=== PATIENT | male | born 2000 | race Caucasian/White ===

== ENCOUNTER 2021-06-09 21:29 | Emergency (ER) ==
[~2021-06-09] VITALS: Ht 172.7 cm; Wt 77.3 kg
--- NOTE | 2021-06-10 00:07 | REPVR ---
PROCEDURE INFORMATION: Exam: XR Left Wrist Exam date and time: 06/09/2021 9:59 PM Age: 20 years old Clinical indication: Other: Fell TECHNIQUE: Imaging protocol: XR Left wrist. Views: 3 or more views. COMPARISON: No relevant prior studies available. FINDINGS: Distal radioulnar congruency is maintained. Radiocarpal joint spacing and alignment is preserved. Intercarpal spacing and alignment of the carpal arcs is preserved. No acute fracture seen. IMPRESSION: No radiographic evidence of an acute osseous injury or articular malalignment is seen at the left wrist. Electronically signed by: Raul Montero On 06/10/2021 00:07:25 AM
--- NOTE | 2021-06-10 00:13 | REPVR ---
PROCEDURE INFORMATION: Exam: XR Left Shoulder Exam date and time: 06/09/2021 9:59 PM Age: 20 years old Clinical indication: Other: Fell TECHNIQUE: Imaging protocol: XR Left shoulder. Views: 2 or more views. COMPARISON: No relevant prior studies available. FINDINGS: Glenohumeral alignment is anatomic. The humeral head is concentric, without evidence of a Hill-Sachs deformity. No evidence of calcific tendinitis. No bony Bankart fracture seen. Acromioclavicular alignment and spacing is preserved. There is linear density overlying the midclavicle of uncertain significance. This could be overlying artifact or related to a healing nondisplaced subacute injury. Clinical correlation is advised. IMPRESSION: No radiographic evidence of an acute osseous injury. Other findings discussed above. Electronically signed by: Raul Montero On 06/10/2021 00:12:47 AM
== END 2021-06-10 01:59 | disposition left against medical advice (07) ==
LOC: M ED 21:29
DX: Z53.29 Procedure and treatment not carried out because of patient's decision for other reasons (principal)

== ENCOUNTER 2021-06-29 18:59 | Inpatient (IN) | payer OTHER ==
[~2021-06-29] VITALS: Ht 172.7 cm; Wt 77.5 kg
[2021-06-29 21:16] LABS: HEMATOCRIT 47.2 % (42.0-52.0); HEMOGLOBIN 16.2 g/dl (13.5-17.5); MEAN CORPUSCULAR HEMOGLOBIN 30.2 pg (27.0-33.0); MEAN CORPUSCULAR HGB CONC 34.3 g/dl (32.0-36.5); MEAN CORPUSCULAR VOLUME 88.1 fl (80.0-96.0); PLATELET COUNT, AUTOMATED 298 10^3/uL (150-450); RED BLOOD COUNT 5.36 10^6/uL (4.30-6.10); WHITE BLOOD COUNT 7.6 10^3/uL (4.0-10.0)
[2021-06-29 21:42] LABS: AMPHETAMINES LEVEL URINE NEGATIVE (NEGATIVE); BARBITURATES URINE NEGATIVE (NEGATIVE); BENZODIAZEPINES URINE NEGATIVE (NEGATIVE); CANNABINOIDS URINE NEGATIVE (NEGATIVE); COCAINE METABOLITE URINE NEGATIVE (NEGATIVE); METHADONE URINE NEGATIVE (NEGATIVE); OPIATES URINE NEGATIVE (NEGATIVE); PHENCYCLIDINE URINE NEGATIVE (NEGATIVE)
[2021-06-29 21:47] LABS: ACETAMINOPHEN LEVEL < 2.0 UG/ML (10.0-30.0); ALBUMIN 4.1 GM/DL (3.2-5.2); ALT/SGPT 26 U/L (12-78); BILIRUBIN,DIRECT 0.1 MG/DL (0.0-0.2); BILIRUBIN,TOTAL 0.4 MG/DL (0.2-1.0); BLOOD UREA NITROGEN 14 MG/DL (7-18); CALCIUM LEVEL 8.9 MG/DL (8.5-10.1); CARBON DIOXIDE LEVEL 30 MEQ/L (21-32); CHLORIDE LEVEL 109 MEQ/L (98-107); CREATININE FOR GFR 1.31 MG/DL (0.70-1.30); ETHYL ALCOHOL (ETHANOL) < 0.003 % (0.000-0.010); GLOMERULAR FILTRATION RATE > 60.0 (>60); GLUCOSE, FASTING 84 MG/DL (70-100); SALICYLATE LEVEL < 1.7 MG/DL (5.0-30.0); SODIUM LEVEL 143 MEQ/L (136-145); TOTAL PROTEIN 7.1 GM/DL (6.4-8.2)
[2021-06-29 21:53] LABS: RSV AMPLIFICATION NEGATIVE (NEGATIVE)
[2021-06-29] MEDS ORDERED: MOM 30ML SUSPENSION UDC PO PRN (22:25)
[2021-06-29] MEDS ORDERED: MAALOX 30 ML SUSP *UDC PO PRN (22:25)
[2021-06-29] MEDS ORDERED: ACETAMINOPHEN TAB 650MG DOSE (2X325MG) PO PRN (22:25)
[2021-06-29] MEDS ORDERED: traZODone 50 MG TAB PO PRN (22:25)
--- OUTSIDE RECORDS SUMMARY | 2021-06-29 22:49 | CCD ---
Author Author [facility] Address Unknown Phone Unavailable Support Name Relationship Address Phone [facility] Next Of Kin [address] [place] [address] Unavailable Re-disclosure Warning The records that you are about to access may contain information from federally-assisted alcohol or drug abuse programs. If such information is present, then the following federally mandated warning applies: This information has been disclosed to you from records protected by federal confidentiality rules (42 CFR part 2). The federal rules prohibit you from making any further disclosure of this information unless further disclosure is expressly permitted by the written consent of the person to whom it pertains or as otherwise permitted by 42 CFR part 2. A general authorization for the release of medical or other information is NOT sufficient for this purpose. The Federal rules restrict any use of the information to criminally investigate or prosecute any alcohol or drug abuse patient.The records that you are about to access may contain highly sensitive health information, the redisclosure of which is protected by Article 27-F of the [facility] Public Health law. If you continue you may have access to information: Regarding HIV / AIDS; Provided by facilities licensed or operated by the [facility] Office of Mental Health; or Provided by the [facility] Office for People With Developmental Disabilities. If such information is present, then the following [facility] mandated warning applies: This information has been disclosed to you from confidential records which are protected by state law. State law prohibits you from making any further disclosure of this information without the specific written consent of the person to whom it pertains, or as otherwise permitted by law. Any unauthorized further disclosure in violation of state law may result in a fine or skilled nursing sentence or both. A general authorization for the release of medical or other information is NOT sufficient authorization for further disc losure. Medications No Information Insurance Providers Payer name Policy type / Coverage type Policy ID Covered constitution party ID Covered constitution party's relationship to dawn Policy Dawn Plan [facility] [employer] [id number] [employer] [id number] Problems, Conditions, and Diagnoses No Information Surgeries/Procedures No Information Results No Information Social History No Information
[2021-06-29] MEDS ORDERED: HOME MED LIST COMPLETE! XX SCH (23:20)
[2021-06-30 01:58] VITALS: BP 117/67
[2021-06-30] MEDS: SERTRALINE HCL 50 MG TAB PO SCH (08:55)
[2021-06-30] MEDS ORDERED: NICOTINE 21MG/24HR 1 EA TRANSDERMAL TD PRN (10:20)
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
[2021-06-30] MEDS: hydrOXYzine 50 MG TAB PO SCH ×2 (11:57→18:15)
[2021-06-30 16:25] VITALS: BP 118/56
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
[2021-06-30] MEDS ORDERED: PRAZOSIN 1 MG CAP PO SCH (21:00)
[2021-06-30 21:14] VITALS: BP 146/64
[2021-07-01] MEDS: hydrOXYzine 50 MG TAB PO SCH ×3 (00:37→11:35)
[2021-07-01 06:59] VITALS: BP 120/56
[2021-07-01] MEDS: SERTRALINE HCL 50 MG TAB PO SCH (07:57)
[2021-07-01] MEDS ORDERED: SERT50TA29 PO (11:29)
[2021-07-01] MEDS ORDERED: NICO21PAT TD (11:29)
[2021-07-01] MEDS ORDERED: MINI1CAP PO (11:29)
[2021-07-01] MEDS ORDERED: HYDR50TA70 PO (11:29)
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
== END 2021-07-01 13:35 | disposition home or self-care (01) | DRG 882 ==
LOC: M ED 18:59 → M ED INP 22:22 → M PSY 06-30 01:06
PROVIDERS: ADMIT Psychiatry & Neurology Psychiatry; ATTEND Student in an Organized Health Care Education/Training Program
DX: F43.10 Post-traumatic stress disorder, unspecified (principal); F33.1 Major depressive disorder, recurrent, moderate; F60.89 Other specific personality disorders; Z62.810 Personal history of physical and sexual abuse in childhood; Z62.811 Personal history of psychological abuse in childhood; Z91.51 Personal history of suicidal behavior; F17.290 Nicotine dependence, other tobacco product, uncomplicated; F10.10 Alcohol abuse, uncomplicated; M25.512 Pain in left shoulder; G47.00 Insomnia, unspecified; Z79.899 Other long term (current) drug therapy; Z20.822 Contact with and (suspected) exposure to COVID-19

== ENCOUNTER 2021-11-10 18:48 | Emergency (ER) | payer OTHER ==
[~2021-11-10] VITALS: Ht 172.7 cm; Wt 88.0 kg
[~2021-11-10 18:48] MED LIST: HYDR50TA70 PO; MINI1CAP PO; NICO21PAT TD; SERT50TA29 PO
[2021-11-10 20:50] LABS: HEMATOCRIT 46.3 % (42.0-52.0); HEMOGLOBIN 16.4 g/dl (13.5-17.5); MEAN CORPUSCULAR HEMOGLOBIN 30.3 pg (27.0-33.0); MEAN CORPUSCULAR HGB CONC 35.4 g/dl (32.0-36.5); MEAN CORPUSCULAR VOLUME 85.6 fl (80.0-96.0); PLATELET COUNT, AUTOMATED 301 10^3/uL (150-450); RED BLOOD COUNT 5.41 10^6/uL (4.30-6.10); WHITE BLOOD COUNT 7.1 10^3/uL (4.0-10.0)
[2021-11-10 20:55] LABS: AMPHETAMINES LEVEL URINE NEGATIVE (NEGATIVE); BARBITURATES URINE NEGATIVE (NEGATIVE); BENZODIAZEPINES URINE NEGATIVE (NEGATIVE); CANNABINOIDS URINE NEGATIVE (NEGATIVE); COCAINE METABOLITE URINE NEGATIVE (NEGATIVE); METHADONE URINE NEGATIVE (NEGATIVE); OPIATES URINE NEGATIVE (NEGATIVE); PHENCYCLIDINE URINE NEGATIVE (NEGATIVE)
[2021-11-10 21:26] LABS: ACETAMINOPHEN LEVEL < 2.0 UG/ML (10.0-30.0); ALT/SGPT 40 U/L (12-78); BILIRUBIN,DIRECT < 0.1 MG/DL (0.0-0.2); BILIRUBIN,TOTAL 0.3 MG/DL (0.2-1.0); BLOOD UREA NITROGEN 15 MG/DL (7-18); CALCIUM LEVEL 8.8 MG/DL (8.5-10.1); CARBON DIOXIDE LEVEL 28 MEQ/L (21-32); CHLORIDE LEVEL 109 MEQ/L (98-107); CREATININE FOR GFR 1.05 MG/DL (0.70-1.30); ETHYL ALCOHOL (ETHANOL) < 0.003 % (0.000-0.010); GLOMERULAR FILTRATION RATE > 60.0 (>60); GLUCOSE, FASTING 102 MG/DL (70-100); POTASSIUM SERUM 4.4 MEQ/L (3.5-5.1); SALICYLATE LEVEL < 1.7 MG/DL (5.0-30.0); SODIUM LEVEL 139 MEQ/L (136-145); TOTAL PROTEIN 7.1 GM/DL (6.4-8.2)
[2021-11-10 21:49] LABS: RSV AMPLIFICATION NEGATIVE (NEGATIVE)
[2021-11-10] MEDS ORDERED: HYDR50TA70 PO (23:09)
[2021-11-10] MEDS ORDERED: PRAZ1CAP PO (23:09)
[2021-11-10] MEDS ORDERED: SERT50TA29 PO (23:09)
[2021-11-10] MEDS ORDERED: HOME MED LIST COMPLETE! XX SCH (23:20)
[2021-11-11] MEDS ORDERED: hydrOXYzine 50 MG TAB PO PRN (07:10)
[2021-11-11] MEDS ORDERED: SERTRALINE HCL 50 MG TAB PO SCH (09:00)
[2021-11-11] MEDS ORDERED: PRAZOSIN 1 MG CAP PO SCH ×2 (21:00)
[2021-11-11 21:07] VITALS: BP 131/62
[2021-11-12 01:35] VITALS: BP 129/58
[2021-11-12] MEDS ORDERED: SERTRALINE HCL 50 MG TAB PO SCH (09:00)
== END 2021-11-12 01:46 ==
LOC: M ED 18:48
DX: R45.851 Suicidal ideations (principal); F33.9 Major depressive disorder, recurrent, unspecified; Z79.899 Other long term (current) drug therapy; F17.220 Nicotine dependence, chewing tobacco, uncomplicated